=== PATIENT | female | born 1940 | race Caucasian/White ===

== ENCOUNTER 2023-02-22 10:47 | Outpatient (RCR) | payer MEDICARE, OTHER, SELFPAY | END 2023-02-22 12:05 | disposition home or self-care (01) | LOC: RPT 10:47 | PROVIDERS: ATTENDING PHYSICIAN Family Medicine | DX: G62.9 Polyneuropathy, unspecified (principal); R26.9 Unspecified abnormalities of gait and mobility; R42 Dizziness and giddiness; Z73.6 Limitation of activities due to disability | CPT/HCPCS: 97110; 97112; 97116 ==

== ENCOUNTER 2023-07-05 08:25 | Outpatient (RCR) | payer MEDICARE, OTHER, SELFPAY | END 2023-07-05 23:59 | disposition home or self-care (01) | LOC: RPT 08:25 | PROVIDERS: ATTENDING PHYSICIAN Psychiatry & Neurology Neurology; FAMILY PHYSICIAN Family Medicine | DX: R26.9 Unspecified abnormalities of gait and mobility (principal); Z73.6 Limitation of activities due to disability | CPT/HCPCS: 97112; 97163 ==

== ENCOUNTER 2023-08-06 15:08 | Outpatient (RCR) | payer MEDICARE, OTHER, SELFPAY | END 2023-08-06 23:59 | disposition home or self-care (01) | LOC: RPT 15:08 | PROVIDERS: ATTENDING PHYSICIAN Psychiatry & Neurology Neurology; FAMILY PHYSICIAN Family Medicine | DX: R26.81 Unsteadiness on feet (principal); R20.0 Anesthesia of skin; M17.0 Bilateral primary osteoarthritis of knee; Z73.6 Limitation of activities due to disability | CPT/HCPCS: 97110; 97112; 97116 ==

== ENCOUNTER 2023-09-01 16:15 | Outpatient (RCR) | payer MEDICARE, OTHER, SELFPAY | END 2023-09-01 23:59 | disposition home or self-care (01) | LOC: RPT 16:15 | PROVIDERS: ATTENDING PHYSICIAN Psychiatry & Neurology Neurology; FAMILY PHYSICIAN Family Medicine | DX: R26.9 Unspecified abnormalities of gait and mobility (principal); Z73.6 Limitation of activities due to disability | CPT/HCPCS: 97110; 97112; 97116 ==

== ENCOUNTER → 2023-09-07 10:56 | Outpatient (REF) | payer MEDICARE, OTHER, SELFPAY | LOC: HWWDC 10:56 | PROVIDERS: ATTENDING PHYSICIAN Family Medicine | DX: Z12.31 Encounter for screening mammogram for malignant neoplasm of breast (principal) | CPT/HCPCS: 77063; 77067 ==

== ENCOUNTER 2023-09-13 13:17 | Outpatient (RCR) | payer MEDICARE, OTHER, SELFPAY | END 2023-09-13 14:50 | disposition home or self-care (01) | LOC: RPT 13:17 | PROVIDERS: ATTENDING PHYSICIAN Psychiatry & Neurology Neurology; FAMILY PHYSICIAN Family Medicine | DX: R26.81 Unsteadiness on feet (principal); R20.0 Anesthesia of skin; Z73.6 Limitation of activities due to disability | CPT/HCPCS: 97110 ==

== ENCOUNTER → 2024-08-11 10:53 | Outpatient (REF) | payer MEDICARE, OTHER, SELFPAY ==
[2024-08-11 11:38] LABS: % Basophils 0.7 % (0-2); % Eosinophils 3.5 % (0-6); % Immature Granulocytes 0.3 % (0-0.5); % Lymphocytes 30.4 % (20.5-51.1); % Monocytes 7.8 % (1.7-9.3); % Neutrophils 57.3 % (42.2-75.2); Absolute Basophils 0.1 10^3/uL (0-0.2); Absolute Eosinophils 0.3 10^3/uL (0-0.7); Absolute Monocytes 0.8 10^3/uL (0.1-0.6); Absolute Neutrophils 5.6 10^3/uL (1.4-6.5); Hematocrit 42.5 % (37.0-47.0); Hemoglobin 13.6 g/dL (12.0-16.0); Mean Corpuscular Hgb 31.6 pg (27.0-31.0); Mean Corpuscular Volume 98.8 fL (81.0-99.0); Mean Platelet Volume 10.1 fL (7.4-10.4); Nucleated Red Blood Cells % 0 %; Platelet Count 255 10^3/uL (130-400); Red Cell Dist. Width 12.5 % (11.5-14.5); White Blood Cell Count 9.8 10^3/uL (4.8-10.8)
[2024-08-11 11:49] LABS: ALT (SGPT) 15 U/L (0-35); AST (SGOT) 23 U/L (14-36); Albumin 4.4 g/dl (3.5-5.0); Alkaline Phosphatase 83 U/L (38-126); Blood Urea Nitrogen 23 mg/dl (7-17); Calcium 9.6 mg/dl (8.4-10.2); Carbon Dioxide 26 mmol/L (22-30); Chloride 108 mmol/L (98-107); Glucose 85 mg/dl (70-99); HDL Cholesterol 71 mg/dl; LDL Cholesterol, Calculated 106 mg/dl; Potassium 4.6 mmol/L (3.5-5.1); Sodium 144 mmol/L (135-145); Total Bilirubin 0.7 mg/dl (0.2-1.3); Total Cholesterol 195 mg/dl (50-199); Total Protein 7.5 g/dl (6.3-8.2); Triglyceride 93 mg/dl (10-149); Very Low Density Lipoprotein 18 mg/dl (0-30); eGFR > 60.00
[2024-08-11 12:11] LABS: TSH 4.92 uIU/ml (0.47-4.68)
== END ==
LOC: OLABPV 10:53
PROVIDERS: ATTENDING PHYSICIAN Family Medicine
DX: R42 Dizziness and giddiness (principal); G62.9 Polyneuropathy, unspecified; G25.2 Other specified forms of tremor
CPT/HCPCS: 36415; 80053; 80061; 84443; 85025

== ENCOUNTER → 2024-08-29 11:39 | Outpatient (REF) | payer MEDICARE, OTHER, SELFPAY ==
[2024-08-29 11:58] LABS: % Basophils 0.7 % (0-2); % Eosinophils 5.7 % (0-6); % Immature Granulocytes 0.3 % (0-0.5); % Lymphocytes 31.6 % (20.5-51.1); % Monocytes 7.7 % (1.7-9.3); Absolute Eosinophils 0.4 10^3/uL (0-0.7); Absolute Lymphocytes 1.9 10^3/uL (1.2-3.4); Absolute Monocytes 0.5 10^3/uL (0.1-0.6); Absolute Neutrophils 3.3 10^3/uL (1.4-6.5); Hematocrit 38.8 % (37.0-47.0); Hemoglobin 12.7 g/dL (12.0-16.0); Mean Corp Hgb Conc. 32.7 g/dL (33.0-37.0); Mean Corpuscular Hgb 31.7 pg (27.0-31.0); Mean Corpuscular Volume 96.8 fL (81.0-99.0); Mean Platelet Volume 9.8 fL (7.4-10.4); Nucleated Red Blood Cells % 0 %; Platelet Count 242 10^3/uL (130-400); Red Blood Cell Count 4.01 10^6/uL (4.20-5.40); Red Cell Dist. Width 12.3 % (11.5-14.5); White Blood Cell Count 6.1 10^3/uL (4.8-10.8)
[2024-08-29 12:51] LABS: Erythrocyte Sed Rate 27 mm/hour (0-20)
[2024-08-29 12:53] LABS: TSH 3.35 uIU/ml (0.47-4.68)
[2024-08-29 14:41] LABS: Urine Albumin Negative (Neg - Trace); Urine Bilirubin Negative (Negative); Urine Character Clear (Clear); Urine Color Yellow; Urine Glucose Negative (Negative); Urine Ketone Negative (Negative); Urine Leukocyte Negative (Negative); Urine Nitrite Negative (Negative); Urine Occult Blood Negative (Negative); Urine Urobilinogen Negative (Neg - 1+)
[2024-08-30 21:51] LABS: Thyroid Peroxidase Ab (TPO) 12.2 IU/mL (0.0-9.0)
[2024-08-31 13:28] LABS: Lyme Antibody Screen, EIA Negative (Negative)
== END ==
LOC: OLABPV 11:39
PROVIDERS: ATTENDING PHYSICIAN Family Medicine
DX: R53.1 Weakness (principal); M25.50 Pain in unspecified joint; R79.89 Other specified abnormal findings of blood chemistry; D64.9 Anemia, unspecified; R35.0 Frequency of micturition
CPT/HCPCS: 36415; 81003; 84443; 85025; 85652; 86140; 86376; 86618

== ENCOUNTER 2024-09-16 22:07 | Emergency (ER) | payer MEDICARE, OTHER, SELFPAY ==
[2024-09-16 22:07] VITALS: BMI 24.3
[2024-09-16 22:08] VITALS: BP 130/70
[2024-09-16 22:14] LABS: Glucose - Point of Care 92 mg/dl (70-99)
[2024-09-16 22:20] VITALS: BP 147/69
[2024-09-16 22:42] LABS: Hematocrit 40.0 % (37.0-47.0); Hemoglobin 13.2 g/dL (12.0-16.0); Mean Corp Hgb Conc. 33.0 g/dL (33.0-37.0); Mean Corpuscular Volume 95.2 fL (81.0-99.0); Nucleated Red Blood Cells % 0 %; Platelet Count 212 10^3/uL (130-400); Red Cell Dist. Width 12.4 % (11.5-14.5)
[2024-09-16 22:54] LABS: INR 0.97; PT 13.2 Sec (11.4-14.6)
[2024-09-16 22:55] LABS: APTT 28.5 Sec (23.4-35.0)
[2024-09-16 23:07] LABS: Troponin I < 0.012 ng/ml
[2024-09-16 23:10] LABS: ALT (SGPT) 16 U/L (0-35); AST (SGOT) 23 U/L (14-36); Albumin 4.3 g/dl (3.5-5.0); Alkaline Phosphatase 68 U/L (38-126); Blood Urea Nitrogen 22 mg/dl (7-17); Calcium 9.5 mg/dl (8.4-10.2); Carbon Dioxide 29 mmol/L (22-30); Chloride 106 mmol/L (98-107); Estimated Creatinine Clearance 63 ml/min; Glucose 86 mg/dl (70-99); Potassium 4.5 mmol/L (3.5-5.1); Sodium 139 mmol/L (135-145); Total Protein 7.4 g/dl (6.3-8.2); eGFR > 60.00
[2024-09-16 23:16] LABS: Urine Character Clear (Clear)
--- NOTE | 2024-09-16 23:31 | ED.CVA ---
History of Present Illness
General
Chief Complaint: CVA/TIA Symptoms
Source: patient, spouse and family (daughter)
Exam Limitations: none
Time Seen by Provider: 09/16/24 23:10
Nursing documentation reviewed up to this point in time: agreed with
Onset of Stroke Symptoms
Onset of symptoms known: Yes
Date of onset of symptoms: 09/09/24
History of Present Illness
History of Present Illness:
83-year-old female presents emergency department due to weakness, dizziness and slurred speech for the past 1 week. She went to a festival today, but feels a bit weaker over the past several days. She has a history of orthostatic tremor. She is
followed with a neurologist at [facility] for this.
Past History
Past History
ED Past Medical History: Other (neuropathy, neuritis, IBS, orthostatic tremor)
ED Past Surgical History: Orthopedic (Left shoulder) and Other (Right lumpectomy, cataract removal, detached retina repair, wisdom teeth)
Social History
Tobacco: Non-smoker
Alcohol: None
Drug: None
Personal:
Living: with family
Review of Systems
Review of Systems
Allergies reviewed?: Yes
All Other Systems: Not applicable
Constitutional: Reports no symptoms
EENT: Reports no symptoms
Respiratory: Reports no symptoms
Cardiac: Reports no symptoms
ABD/GI: Reports no symptoms
: Reports no symptoms
Musculoskeletal: Reports no symptoms
Skin: Reports no symptoms
Neurological: Reports weakness and other (Slurred speech)
Endocrine: Reports no symptoms
Hematologic/Lymphatic: Reports no symptoms
Psychiatric: Reports no symptoms
Phy Exam
Physical Exam
Physical Exam:
Physical Exam
General: no apparent distress, not acutely ill
Neck: supple. no meningeal signs. normal posterior pharynx
Heart: s1/s2 regular rate and rhythm, no murmur. equal radial
pulses.
HEENT: Pupils equal round reactive to light, EOMI
Lungs: no acute respiratory distress. clear bilaterally
Abdomen: normal bowel sounds. not tender. no CVAT
Neuro: alert and oriented. no focal neurological deficits cranial nerves II through XII intact
Skin: no rash
Psychiatric: well kept. interactive and cooperative
Extremities: no edema. no calf tenderness. negative homans. good distal pulses
Course
Orders/Labs/Results
Orders:
Orders
09/16/24 22:13
Electrocardiogram (*1) Urgent
Reason for Study: Other
Other Reason for Exam: Possible Stroke
Bedside Glucose- Treatment ONCE
EKG- Treatment ONCE
09/16/24 22:22
Complete Blood Count/With Diff Urgent
Comprehensive Metabolic Panel Urgent
PTT Urgent
Prothrombin Time Urgent
Troponin I Urgent
09/16/24 23:08
Urinalysis Reflex To Culture Urgent
Date Specimen was Collected: 09/16/24
Time Specimen was Collected: 23:07
09/17/24 00:03
CT Head W/o Iv Contrast Urgent
Reason For Exam: episode slurred speech 3 days
Abnormal Lab Results
09/16/24
22:22
MCH 31.4 H pg
(27.0-31.0)
BUN 22 H mg/dl
(7-17)
09/16/24 22:22
09/16/24 22:22
Vital Signs
Initial and Last Documented VS:
Initial Vital Signs
Temp Pulse Resp BP Pulse Ox
98.4 F 63 17 130/70 95
09/16/24 22:08 09/16/24 22:08 09/16/24 22:08 09/16/24 22:08 09/16/24 22:08
Last Documented Vital Signs
Temp Pulse Resp BP Pulse Ox
98.4 F 63 12 107/51 95
09/16/24 22:08 09/17/24 00:30 09/17/24 00:30 09/17/24 00:00 09/16/24 23:36
MDM/Problems Addressed
Differential Diagnosis Includes:
TIA, CVA
MDM/Problems Addressed:
83-year-old female with dizziness, no notable neurologic deficits. Stable for discharge CT head normal. Do not suspect CVA or TIA.
Chronic conditions affecting care: Neurological disorder (Orthostatic tremor)
*Pulse Oximetry
SaO2: 95
Oxygen Mode of Delivery: Room air
Patient hypoxic: no
*Customer Consulting Manager Interpretation
Rate: Customer Consulting Manager- N/A
*Critical Care Note
Total Time (30-74mins, 75-104mins- exclusive of procedures): Not Applicable
Data Reviewed
Further Testing Considered But Not Given:
cta not indicated
Patient Management
Social determinants of health affecting care: Living situation and Strong social support
Escalation/DeEscalation of care consider admission/obs:
admit not indicated
ED Attending Note
-
Portions of this chart may have been created with voice recognition software.� Occasional wrong word or��sound alike� substitutions may have occurred due to the inherent limitations of voice recognition software.
Discharge Plan
Departure
Patient Disposition: Home (Routine Discharge)
Date of Disposition: 09/17/24
Time of Disposition: 01:41
Patient with high blood pressure during this ER visit?: No
Condition: Good
Discharge Problem:
Dizziness
Instructions: Dizziness in adults - ED discharge instructions
Referrals:
Jelena Prince MD [Family Provider, Family Practice] - Call in 1-3 days for appt
Interventions
Interventions:
*Risk Screen - Suicide Last Done: 09/16/24 22:08
*General Assessment Last Done: 09/16/24 22:08
*Neglect/Abuse Screening Last Done: 09/16/24 22:08
ED- Neurological Assessment Last Done: 09/16/24 22:55
Discharge Date and Time
Print Language: ANGUILLAN
[2024-09-17] VITALS: BP 107/51
== END 2024-09-17 02:16 | disposition home or self-care (01) ==
LOC: EMR 22:07
PROVIDERS: Student in an Organized Health Care Education/Training Program; EMERGENCY PHYSICIAN Emergency Medicine; FAMILY PHYSICIAN Family Medicine
DX: R42 Dizziness and giddiness (principal); R53.1 Weakness; R47.81 Slurred speech
CPT/HCPCS: 99284; 70450; 80053; 81003; 82962; 84484; 85025; 85610; 85730; 93005

== ENCOUNTER → 2024-09-20 15:12 | Outpatient (REF) | payer MEDICARE, OTHER, SELFPAY | LOC: WDC 15:12 | PROVIDERS: ATTENDING PHYSICIAN Family Medicine | DX: Z12.31 Encounter for screening mammogram for malignant neoplasm of breast (principal) | CPT/HCPCS: 77063; 77067 ==